=== PATIENT | female | born 1955 | race Two or more races ===

== ENCOUNTER 2019-03-03 07:56 | Day surgery (SDC) | payer BC ==
[~2019-03-03] VITALS: Ht 152.4 cm; Wt 64.4 kg
[2019-03-03] VITALS (9 sets, daily range): BP systolic 113–126; BP diastolic 69–76
[~2019-03-03 07:56] MED LIST: LR 1000ml 1,000 ML IVLG SCH
[2019-03-03] MEDS ORDERED: CRESTOR10 M1 ORAL (08:38)
[2019-03-03] MEDS ORDERED: Lidocaine 1% MPF 10mg/ml 5ml ONE (09:00)
[2019-03-03] MEDS ORDERED: LR 1000ml ONE (09:00)
[2019-03-03] MEDS ORDERED: Propofol 200mg/20ml IV ONE (09:00)
--- NOTE | 2019-03-03 09:03 | Pre-Procedure Note/Attestation ---
Pre-Procedure Note/Attestation Complete Prior to Procedure Planned Procedure: not applicable Procedure Narrative: esophagogastroduodenoscopy colonoscopy, Indications for Procedure Pre-Operative Diagnosis: gerd, screening colon Attestation I attest that I discussed the nature of the procedure; its benefits; risks and complications; and alternatives (and the risks and benefits of such alternatives ), prior to the procedure, with the patient (or the patient's legal billing customer service representative). I attest that, if there was a reasonable possibility of needing a blood transfusion, the patient (or the patient's legal billing customer service representative) was given the [facility] standardized written summary, pursuant to the Marciano Callie Blood Safety Act ([place] Health and Safety Code # 1645, as amended). I attest that I re-evaluated the patient just prior to the surgery and that there has been no change in the patient's H&P, except as documented below: Vinnie Lizama MD Mar 03, 2019 09:03
--- NOTE | 2019-03-03 09:04 | Short Stay Surgery H&P ---
History of Present Illness History of Present Illness Chief Complaint grd, screening colon HPI Tano Bailey is a 63 year old female who was admitted on for Diarrhea, Constipation Patient History Allergies: Coded Allergies: No Known Allergies (Unverified , 03/02/19) PAST MEDICAL HISTORY: (1) GERD (gastroesophageal reflux disease) (2) Hypercholesteremia Medication History Scheduled Rosuvastatin Calcium (Crestor), 5 MG ORAL DAILY, (Reported) Review of Systems Cardiovascular: Reports: no symptoms Respiratory: Reports: no symptoms Skeletal: Reports: no symptoms Gastrointestinal: Reports: no symptoms Genitourinary: Reports: no symptoms Neurologic: Reports: no symptoms Endocrine: Reports: no symptoms Physical Exam Vital Signs Last Vital Signs Date Time Temp Pulse Resp B/P (MAP) Pulse Ox O2 Delivery O2 Flow Rate FiO2 03/03/19 08:44 97.3 79 20 120/75 99 Room Air Skin: normal HENT: normal Heart: normal Lungs: normal Abdomen: normal Extremities: normal Plan Plan of Care esophagogastroduodenoscopy and colonoscopy Attestation Are the patient's medical conditions optimized for surgery? Attestation Response: yes Vinnie Lizama MD Mar 03, 2019 09:04
--- NOTE | 2019-03-03 09:24 | Anethesia Preoperative Eval ---
Anesthesia Pre-op PMH/ROS General Date of Evaluation: Mar 03, 2019 Time of Evaluation: 08:50 Anesthesiologist: Ange Castro CRNA ASA Score: ASA 2 Mallampati Score Class I : Soft palate, uvula, fauces, pillars visible Class II: Soft palate, uvula, fauces visible Class III: Soft palate, base of uvula visible Class IV: Only hard plate visible Mallampati Classification: Class II Surgeon: Dl Diagnosis: colon screening, GERD Surgical Procedure: EGD, Colonoscopy Anesthesia History: none Family History: no anesthesia problems Allergies: Coded Allergies: No Known Allergies (Unverified , 03/02/19) Medications: see eMAR Patient NPO?: Yes NPO Date: Mar 03, 2019 NPO Time: 00:00 Past Medical History Cardiovascular: Reports: other - hypercholesterolemia; Denies: HTN, CAD, SD, valve dz, arrhythmia Pulmonary: Denies: asthma, COPD, TORIE, other Gastrointestinal/Genitourinary: Reports: GERD; Denies: CRI, ESRD, other Neurologic/Psychiatric: Denies: dementia, CVA, depression/anxiety, TIA, other Endocrine: Denies: DM, hypothyroidism, steroids, other HEENT: Denies: cataract (L), cataract (R), glaucoma, BURNS PAIUTE (L), BURNS PAIUTE (R), other Hematology/Immune: Denies: anemia, DVT, bleeding disorder, other Musculoskeletal/Integumentary: Denies: OA, RA, DJD, DDD, edema, other PMH Narrative: as noted above PSxH Narrative: c/s; colonoscopy Anesthesia Pre-op Phys. Exam Physician Exam Last Vital Signs Date Time Temp Pulse Resp B/P (MAP) Pulse Ox O2 Delivery O2 Flow Rate FiO2 03/03/19 08:44 97.3 79 20 120/75 99 Room Air Constitutional: NAD Neurologic: other - Alert & oriented Cardiovascular: RRR Respiratory: CTA Gastrointestinal: S/NT/ND Airway Exam Mallampati Score: Class II MO: full Neck: FROM TMD: > 3 fb ROM: full Teeth: intact Dentures: no upper, no lower Anesthesia Pre-op A/P Studies Pre-op Studies: EKG - NSR Risk Assessment & Plan Assessment: ASA 2, OK to proceed Plan: MAC Status Change Before Surgery: No Pre-Antibiotics Given Within 1 Hr of Incision: Ange Villanueva CRNA Mar 03, 2019 09:24
--- NOTE | 2019-03-03 09:36 | Endoscopy Procedure Note ---
Endoscopy Procedure Note General Indication for Procedure: screening colon, gERD Procedures Performed: EGD, colonoscopy Operative Findings/Diagnosis: one polyp Specimen: yes Pt Tolerated Procedure Well: Yes Estimated Blood Loss: none Anesthesia Anesthesiologist: ailyn Anesthesia: MAC Inserted Devices Implant(s) used?: No Quality Quality of Bowel Preparation: Excellent Did scope reach the cecum?: Yes Was there any complications?: No GI Core Measures 50 yrs or older w/o bx or poly: No 10yrs. F/U recommended: Yes If not recommended, why?: Above average risk 18 years or older w/prev. colo: No Vinnie Lizama MD Mar 03, 2019 09:36
--- NOTE | 2019-03-03 09:50 | Immediate Post-Op Evaluation ---
Immediate Post-Op Evalulation Immediate Post-Op Evalulation Procedure: EGD, colonoscopy, polypectomy Date of Evaluation: Mar 03, 2019 Time of Evaluation: 09:45 IV Fluids: LR 500 ml Blood Pressure Systolic: 115 Blood Pressure Diastolic: 71 Pulse Rate: 74 Respiratory Rate: 16 O2 Sat by Pulse Oximetry: 100 Temperature (Fahrenheit): 97.4 Pain Score (1-10): 0 Nausea: No Vomiting: No Complications none Patient Status: awake, patent Hydration Status: adequate Given Within 1 Hr of Incision: Ange Villanueva CRNA Mar 03, 2019 09:50
--- NOTE | 2019-03-03 11:19 | 48 Hour Post Anesthesia Eval ---
Post Anesthesia Evaluation Procedure: EGD, colonoscopy, polypectomy Date of Evaluation: Mar 03, 2019 Time of Evaluation: 11:18 Blood Pressure Systolic: 124 0: 72 Pulse Rate: 76 Respiratory Rate: 15 Temperature (Fahrenheit): 97.4 O2 Sat by Pulse Oximetry: 96 Airway: patent Nausea: No Vomiting: No Pain Intensity: 0 Hydration Status: adequate Cardiopulmonary Status: stable Mental Status/LOC: patient returned to baseline Follow-up Care/Observations: per GI Post-Anesthesia Complications: none Follow-up care needed: N/A Ange Castro CRNA Mar 03, 2019 11:19
--- NOTE | 2019-03-03 15:15 | Procedure Note ---
DATE OF PROCEDURE: 03/03/2019 SURGEON: Vinnie Lizama M.D. PROCEDURE: Upper endoscopy with biopsy and colonoscopy with biopsy. ANESTHESIA: Per Ange DENISE. INSTRUMENT: Olympus adult flexible upper endoscope and colonoscope. REASON FOR PROCEDURE: The procedure, risks, benefits, and possible consequences, including hemorrhage, aspiration, perforation and infection, and alternative treatments, were explained to the patient/legal guardian by Dr. Vinnie Lizama and the patient/legal guardian understood and accepted these risks. INDICATION: Screening colonoscopy evaluation, chronic GERD. DESCRIPTION OF PROCEDURE: After informed consent was obtained and the patient was adequately sedated, Olympus upper endoscope was advanced from mouth into the second portion of the duodenum and retroflexion was performed in the stomach. The patient had diffuse gastritis. Random biopsy from antrum and body was obtained to rule out H. pylori infection. At this time, the upper endoscope was retrieved. The patient was turned over for colonoscopy. First, rectal exam was performed, which was normal. Then, the scope was advanced from the rectum into the cecum then subsequently to terminal ileum. Quality of prep was very good. The patient had normal colonoscopy examination except one polyp seen in the sigmoid colon, which was removed with a cold biopsy forceps technique. Also, the patient had scattered diverticulosis in the left colon. No obvious mass was seen. Retroflexion of rectum showed evidence of medium-sized nonbleeding internal hemorrhoids. SUMMARY OF FINDINGS: 1. Gastritis, status post biopsy. 2. One colonic polyp removed, see above for details. 3. Diverticulosis in the left colon. 4. Internal hemorrhoids. RECOMMENDATIONS: 1. Follow biopsy results and treat accordingly. 2. We recommend repeat colonoscopy in 5 years. Vinnie Lizama M.D. DR: JOVANY JOB#: [id number] CC:
== END 2019-03-03 11:20 | disposition home or self-care (01) ==
LOC: GAS 07:56
DX: Z12.11 Encounter for screening for malignant neoplasm of colon (principal); K21.9 Gastro-esophageal reflux disease without esophagitis; K29.70 Gastritis, unspecified, without bleeding; K63.5 Polyp of colon; K57.90 Diverticulosis of intestine, part unspecified, without perforation or abscess without bleeding; K64.8 Other hemorrhoids; E78.00 Pure hypercholesterolemia, unspecified
CPT/HCPCS: 43239; 45380; J2704; J7120; 94003; 94150